=== PATIENT | male | born 2000 | race Asian ===

== ENCOUNTER 2021-02-10 09:49 | Outpatient (CLI) | payer OTHER | END 2021-02-10 09:50 | disposition home or self-care (01) | LOC: CSHWCC 09:49 | PROVIDERS: ATTEND Nurse Practitioner Family | DX: T81.89XD Other complications of procedures, not elsewhere classified, subsequent encounter (principal); T86.821 Skin graft (allograft) (autograft) failure; L98.8 Other specified disorders of the skin and subcutaneous tissue; L05.01 Pilonidal cyst with abscess | CPT/HCPCS: 99203; G0463 ==

== ENCOUNTER 2021-02-16 08:23 | Outpatient (CLI) | payer OTHER | END 2021-02-16 08:24 | disposition home or self-care (01) | LOC: CSHWCC 08:23 | PROVIDERS: ATTEND Nurse Practitioner Family | DX: T81.89XD Other complications of procedures, not elsewhere classified, subsequent encounter (principal); T86.821 Skin graft (allograft) (autograft) failure; L05.01 Pilonidal cyst with abscess; L98.8 Other specified disorders of the skin and subcutaneous tissue ==

== ENCOUNTER 2021-03-02 08:24 | Outpatient (CLI) | payer OTHER | END 2021-03-02 08:25 | disposition home or self-care (01) | LOC: CSHWCC 08:24 | PROVIDERS: ATTEND Nurse Practitioner Family | DX: T81.89XD Other complications of procedures, not elsewhere classified, subsequent encounter (principal); L59.8 Other specified disorders of the skin and subcutaneous tissue related to radiation; L05.01 Pilonidal cyst with abscess; T86.821 Skin graft (allograft) (autograft) failure | CPT/HCPCS: 99212; G0463 ==

== ENCOUNTER 2021-03-09 09:21 | Outpatient (CLI) | payer OTHER | END 2021-03-09 09:22 | disposition home or self-care (01) | LOC: CSHWCC 09:21 | PROVIDERS: ATTEND Nurse Practitioner Family | DX: T81.89XD Other complications of procedures, not elsewhere classified, subsequent encounter (principal); L05.01 Pilonidal cyst with abscess; L59.8 Other specified disorders of the skin and subcutaneous tissue related to radiation; T86.821 Skin graft (allograft) (autograft) failure | CPT/HCPCS: 99212; G0463 ==

== ENCOUNTER 2021-03-15 11:03 | Outpatient (CLI) | payer OTHER | END 2021-03-15 11:04 | disposition home or self-care (01) | LOC: CSHWCC 11:03 | PROVIDERS: ATTEND Nurse Practitioner Family | DX: T81.89XD Other complications of procedures, not elsewhere classified, subsequent encounter (principal); L05.01 Pilonidal cyst with abscess; L98.8 Other specified disorders of the skin and subcutaneous tissue; T86.821 Skin graft (allograft) (autograft) failure ==

== ENCOUNTER 2021-04-05 11:44 | Outpatient (CLI) | payer OTHER | END 2021-04-05 11:45 | disposition home or self-care (01) | LOC: CSHWCC 11:44 | PROVIDERS: ATTEND Nurse Practitioner Family | DX: T81.89XD Other complications of procedures, not elsewhere classified, subsequent encounter (principal); L05.01 Pilonidal cyst with abscess; L98.8 Other specified disorders of the skin and subcutaneous tissue; T86.821 Skin graft (allograft) (autograft) failure ==

== ENCOUNTER 2021-04-11 11:51 | Outpatient (CLI) | payer OTHER | END 2021-04-11 11:52 | disposition home or self-care (01) | LOC: CSHWCC 11:51 | PROVIDERS: ATTEND Nurse Practitioner Family | DX: T81.89XA Other complications of procedures, not elsewhere classified, initial encounter (principal); L05.01 Pilonidal cyst with abscess; L98.8 Other specified disorders of the skin and subcutaneous tissue; T86.821 Skin graft (allograft) (autograft) failure ==

== ENCOUNTER 2021-04-17 14:55 | Outpatient (CLI) | payer OTHER | END 2021-04-17 14:56 | disposition home or self-care (01) | LOC: CSHWCC 14:55 | PROVIDERS: ATTEND Nurse Practitioner Family | DX: T81.89XD Other complications of procedures, not elsewhere classified, subsequent encounter (principal); T86.821 Skin graft (allograft) (autograft) failure; L05.01 Pilonidal cyst with abscess; L98.8 Other specified disorders of the skin and subcutaneous tissue | CPT/HCPCS: 17250 ==

== ENCOUNTER 2021-04-20 08:27 | Outpatient (CLI) | payer OTHER | END 2021-04-20 08:28 | disposition home or self-care (01) | LOC: CSHWCC 08:27 | PROVIDERS: ATTEND Nurse Practitioner Family | DX: T81.89XD Other complications of procedures, not elsewhere classified, subsequent encounter (principal); T86.821 Skin graft (allograft) (autograft) failure; L05.01 Pilonidal cyst with abscess; L98.8 Other specified disorders of the skin and subcutaneous tissue ==

== ENCOUNTER 2021-04-25 11:07 | Outpatient (CLI) | payer OTHER | END 2021-04-25 11:08 | disposition home or self-care (01) | LOC: CSHWCC 11:07 | PROVIDERS: ATTEND Nurse Practitioner Family | DX: T81.89XD Other complications of procedures, not elsewhere classified, subsequent encounter (principal) ==

== ENCOUNTER 2021-04-27 08:02 | Outpatient (CLI) | payer OTHER | END 2021-04-27 08:03 | disposition home or self-care (01) | LOC: CSHWCC 08:02 | PROVIDERS: ATTEND Nurse Practitioner Family | DX: T81.89XD Other complications of procedures, not elsewhere classified, subsequent encounter (principal) ==

== ENCOUNTER 2021-05-02 08:02 | Outpatient (CLI) | payer OTHER | END 2021-05-02 08:03 | disposition home or self-care (01) | LOC: CSHWCC 08:02 | PROVIDERS: ATTEND Nurse Practitioner Family | DX: T81.89XD Other complications of procedures, not elsewhere classified, subsequent encounter (principal) | CPT/HCPCS: 17250; 99212; G0463 ==

== ENCOUNTER 2021-05-11 08:08 | Outpatient (CLI) | payer OTHER | END 2021-05-11 08:09 | disposition home or self-care (01) | LOC: CSHWCC 08:08 | PROVIDERS: ATTEND Nurse Practitioner Family | DX: T81.89XD Other complications of procedures, not elsewhere classified, subsequent encounter (principal) | CPT/HCPCS: 99213; G0463 ==

== ENCOUNTER 2021-05-16 08:04 | Outpatient (CLI) | payer OTHER | END 2021-05-16 08:05 | disposition home or self-care (01) | LOC: CSHWCC 08:04 | PROVIDERS: ATTEND Nurse Practitioner Family | DX: T81.89XD Other complications of procedures, not elsewhere classified, subsequent encounter (principal) | CPT/HCPCS: 99213; G0463 ==

== ENCOUNTER 2021-05-18 08:06 | Outpatient (CLI) | payer OTHER | END 2021-05-18 08:07 | disposition home or self-care (01) | LOC: CSHWCC 08:06 | PROVIDERS: ATTEND Nurse Practitioner Family | DX: T81.89XD Other complications of procedures, not elsewhere classified, subsequent encounter (principal) | CPT/HCPCS: 17250 ==

== ENCOUNTER 2021-05-23 08:03 | Outpatient (CLI) | payer OTHER | END 2021-05-23 08:04 | disposition home or self-care (01) | LOC: CSHWCC 08:03 | PROVIDERS: ATTEND Nurse Practitioner Family | DX: T81.89XD Other complications of procedures, not elsewhere classified, subsequent encounter (principal) ==

== ENCOUNTER 2021-05-25 08:49 | Outpatient (CLI) | payer OTHER | END 2021-05-25 08:50 | disposition home or self-care (01) | LOC: CSHWCC 08:49 | PROVIDERS: ATTEND Nurse Practitioner Family | DX: T81.89XD Other complications of procedures, not elsewhere classified, subsequent encounter (principal) | CPT/HCPCS: 17250 ==

== ENCOUNTER 2021-05-30 08:43 | Outpatient (CLI) | payer OTHER | END 2021-05-30 08:44 | disposition home or self-care (01) | LOC: CSHWCC 08:43 | PROVIDERS: ATTEND Nurse Practitioner Family | DX: T81.89XD Other complications of procedures, not elsewhere classified, subsequent encounter (principal) ==

== ENCOUNTER 2021-06-01 07:58 | Outpatient (CLI) | payer OTHER | END 2021-06-01 07:59 | disposition home or self-care (01) | LOC: CSHWCC 07:58 | PROVIDERS: ATTEND Nurse Practitioner Family | DX: T81.89XD Other complications of procedures, not elsewhere classified, subsequent encounter (principal) | CPT/HCPCS: 99212; G0463 ==

== ENCOUNTER 2021-07-04 09:28 | Outpatient (CLI) | payer OTHER | END 2021-07-04 09:29 | disposition home or self-care (01) | LOC: CSHWCC 09:28 | PROVIDERS: ATTEND Nurse Practitioner Family | DX: T81.89XD Other complications of procedures, not elsewhere classified, subsequent encounter (principal) | CPT/HCPCS: 97607 ==

== ENCOUNTER 2021-07-20 08:04 | Outpatient (CLI) | payer OTHER | END 2021-07-20 08:05 | disposition home or self-care (01) | LOC: CSHWCC 08:04 | PROVIDERS: ATTEND Nurse Practitioner Family | DX: T81.89XD Other complications of procedures, not elsewhere classified, subsequent encounter (principal) | CPT/HCPCS: 97607; 99212; G0463 ==

== ENCOUNTER 2021-07-24 10:55 | Outpatient (CLI) | payer OTHER | END 2021-07-24 10:56 | disposition home or self-care (01) | LOC: CSHWCC 10:55 | PROVIDERS: ATTEND Nurse Practitioner Family | DX: T81.89XD Other complications of procedures, not elsewhere classified, subsequent encounter (principal) | CPT/HCPCS: 99212; G0463 ==

== ENCOUNTER 2021-07-27 08:06 | Outpatient (CLI) | payer OTHER | END 2021-07-27 08:07 | disposition home or self-care (01) | LOC: CSHWCC 08:06 | PROVIDERS: ATTEND Nurse Practitioner Family | DX: T81.89XD Other complications of procedures, not elsewhere classified, subsequent encounter (principal) | CPT/HCPCS: 99212; G0463 ==

== ENCOUNTER 2021-08-02 08:05 | Outpatient (CLI) | payer OTHER | END 2021-08-02 08:06 | disposition home or self-care (01) | LOC: CSHWCC 08:05 | PROVIDERS: ATTEND Nurse Practitioner Family | DX: T81.89XD Other complications of procedures, not elsewhere classified, subsequent encounter (principal) | CPT/HCPCS: 99213; G0463 ==

== ENCOUNTER 2021-08-09 08:38 | Outpatient (CLI) | payer OTHER | END 2021-08-09 08:39 | disposition home or self-care (01) | LOC: CSHWCC 08:38 | PROVIDERS: ATTEND Nurse Practitioner Family | DX: T81.89XD Other complications of procedures, not elsewhere classified, subsequent encounter (principal) | CPT/HCPCS: 99212; G0463 ==

== ENCOUNTER 2021-08-23 08:01 | Outpatient (CLI) | payer OTHER | END 2021-08-23 08:02 | disposition home or self-care (01) | LOC: CSHWCC 08:01 | PROVIDERS: ATTEND Nurse Practitioner Family | DX: T81.89XD Other complications of procedures, not elsewhere classified, subsequent encounter (principal) | CPT/HCPCS: 99213; G0463 ==

== ENCOUNTER 2021-09-06 08:03 | Outpatient (CLI) | payer OTHER | END 2021-09-06 08:04 | disposition home or self-care (01) | LOC: CSHWCC 08:03 | PROVIDERS: ATTEND Nurse Practitioner Family | DX: T81.89XD Other complications of procedures, not elsewhere classified, subsequent encounter (principal) | CPT/HCPCS: 99212; G0463 ==

== ENCOUNTER 2021-09-11 08:05 | Outpatient (CLI) | payer OTHER | END 2021-09-11 08:06 | disposition home or self-care (01) | LOC: CSHWCC 08:05 | PROVIDERS: ATTEND Nurse Practitioner Family | DX: T81.89XD Other complications of procedures, not elsewhere classified, subsequent encounter (principal) | CPT/HCPCS: 99212; G0463 ==

== ENCOUNTER 2021-09-18 10:49 | Outpatient (CLI) | payer OTHER | END 2021-09-18 10:50 | disposition home or self-care (01) | LOC: CSHWCC 10:49 | PROVIDERS: ATTEND Nurse Practitioner Family | DX: T81.89XD Other complications of procedures, not elsewhere classified, subsequent encounter (principal) | CPT/HCPCS: 97607 ==

== ENCOUNTER 2021-09-22 08:42 | Outpatient (CLI) | payer OTHER | END 2021-09-22 08:43 | disposition home or self-care (01) | LOC: CSHWCC 08:42 | PROVIDERS: ATTEND Nurse Practitioner Family | DX: T81.89XD Other complications of procedures, not elsewhere classified, subsequent encounter (principal) | CPT/HCPCS: 99213; G0463 ==

== ENCOUNTER 2021-09-25 08:10 | Outpatient (CLI) | payer OTHER | END 2021-09-25 08:11 | disposition home or self-care (01) | LOC: CSHWCC 08:10 | PROVIDERS: ATTEND Nurse Practitioner Family | DX: T81.89XD Other complications of procedures, not elsewhere classified, subsequent encounter (principal) ==

== ENCOUNTER 2021-09-29 08:33 | Outpatient (CLI) | payer OTHER | END 2021-09-29 08:34 | disposition home or self-care (01) | LOC: CSHWCC 08:33 | PROVIDERS: ATTEND Nurse Practitioner Family | DX: T81.89XD Other complications of procedures, not elsewhere classified, subsequent encounter (principal) | CPT/HCPCS: 99212; G0463 ==

== ENCOUNTER 2021-10-05 08:00 | Outpatient (CLI) | payer OTHER | END 2021-10-05 08:01 | disposition home or self-care (01) | LOC: CSHWCC 08:00 | PROVIDERS: ATTEND Nurse Practitioner Family | DX: T81.89XD Other complications of procedures, not elsewhere classified, subsequent encounter (principal) ==

== ENCOUNTER 2021-10-09 15:05 | Outpatient (CLI) | payer OTHER | END 2021-10-09 15:06 | disposition home or self-care (01) | LOC: CSHWCC 15:05 | PROVIDERS: ATTEND Nurse Practitioner Family | DX: T81.89XD Other complications of procedures, not elsewhere classified, subsequent encounter (principal) ==

== ENCOUNTER 2021-10-12 08:04 | Outpatient (CLI) | payer OTHER | END 2021-10-12 08:05 | disposition home or self-care (01) | LOC: CSHWCC 08:04 | PROVIDERS: ATTEND Nurse Practitioner Family | DX: T81.89XD Other complications of procedures, not elsewhere classified, subsequent encounter (principal) ==

== ENCOUNTER 2021-10-23 08:04 | Outpatient (CLI) | payer OTHER | END 2021-10-23 08:05 | disposition home or self-care (01) | LOC: CSHWCC 08:04 | PROVIDERS: ATTEND Nurse Practitioner Family | DX: T81.89XD Other complications of procedures, not elsewhere classified, subsequent encounter (principal) ==

== ENCOUNTER 2021-10-30 08:04 | Outpatient (CLI) | payer OTHER | END 2021-10-30 08:05 | disposition home or self-care (01) | LOC: CSHWCC 08:04 | PROVIDERS: ATTEND Nurse Practitioner Family | DX: T81.89XD Other complications of procedures, not elsewhere classified, subsequent encounter (principal) | CPT/HCPCS: 99212; G0463 ==

== ENCOUNTER 2021-11-01 08:05 | Outpatient (CLI) | payer OTHER | END 2021-11-01 08:06 | disposition home or self-care (01) | LOC: CSHWCC 08:05 | PROVIDERS: ATTEND Nurse Practitioner Family | DX: T81.89XD Other complications of procedures, not elsewhere classified, subsequent encounter (principal) | CPT/HCPCS: 99213; G0463 ==

== ENCOUNTER 2021-11-06 08:03 | Outpatient (CLI) | payer OTHER | END 2021-11-06 08:04 | disposition home or self-care (01) | LOC: CSHWCC 08:03 | PROVIDERS: ATTEND Nurse Practitioner Family | DX: T81.89XD Other complications of procedures, not elsewhere classified, subsequent encounter (principal) | CPT/HCPCS: 99212; G0463 ==

== ENCOUNTER 2021-11-10 08:05 | Outpatient (CLI) | payer OTHER | END 2021-11-10 08:06 | disposition home or self-care (01) | LOC: CSHWCC 08:05 | PROVIDERS: ATTEND Nurse Practitioner Family | DX: T81.89XD Other complications of procedures, not elsewhere classified, subsequent encounter (principal) | CPT/HCPCS: 99213; G0463 ==

== ENCOUNTER 2021-11-14 10:41 | Outpatient (CLI) | payer OTHER | END 2021-11-14 10:42 | disposition home or self-care (01) | LOC: CSHWCC 10:41 | PROVIDERS: ATTEND Nurse Practitioner Family | DX: T81.89XD Other complications of procedures, not elsewhere classified, subsequent encounter (principal) ==

== ENCOUNTER 2021-11-21 15:03 | Outpatient (CLI) | payer OTHER | END 2021-11-21 15:04 | disposition home or self-care (01) | LOC: CSHWCC 15:03 | PROVIDERS: ATTEND Nurse Practitioner Family | DX: T81.89XD Other complications of procedures, not elsewhere classified, subsequent encounter (principal) | CPT/HCPCS: 99213; G0463 ==

== ENCOUNTER 2021-11-28 12:48 | Outpatient (CLI) | payer OTHER | END 2021-11-28 12:49 | disposition home or self-care (01) | LOC: CSHWCC 12:48 | PROVIDERS: ATTEND Preventive Medicine Undersea and Hyperbaric Medicine | DX: T81.89XD Other complications of procedures, not elsewhere classified, subsequent encounter (principal) | CPT/HCPCS: 99213; G0463 ==

== ENCOUNTER 2021-12-13 09:27 | Outpatient (CLI) | payer OTHER | END 2021-12-13 09:28 | disposition home or self-care (01) | LOC: CSHWCC 09:27 | PROVIDERS: ATTEND Nurse Practitioner Family | DX: T81.89XD Other complications of procedures, not elsewhere classified, subsequent encounter (principal) | CPT/HCPCS: 99213; G0463 ==

== ENCOUNTER 2021-12-26 10:30 | Outpatient (CLI) | payer OTHER | END 2021-12-26 10:31 | disposition home or self-care (01) | LOC: CSHWCC 10:30 | PROVIDERS: ATTEND Preventive Medicine Undersea and Hyperbaric Medicine | DX: T81.89XD Other complications of procedures, not elsewhere classified, subsequent encounter (principal) | CPT/HCPCS: 99213; G0463 ==

== ENCOUNTER 2022-01-19 08:07 | Outpatient (CLI) | payer OTHER | END 2022-01-19 08:08 | LOC: CSHWCC 08:07 | PROVIDERS: ATTEND Nurse Practitioner Family | DX: T81.89XD Other complications of procedures, not elsewhere classified, subsequent encounter (principal) ==

== ENCOUNTER 2022-01-26 08:09 | Outpatient (CLI) | payer OTHER | END 2022-01-26 08:10 | disposition home or self-care (01) | LOC: CSHWCC 08:09 | PROVIDERS: ATTEND Nurse Practitioner Family | DX: T81.89XD Other complications of procedures, not elsewhere classified, subsequent encounter (principal) | CPT/HCPCS: 99213; G0463 ==

== ENCOUNTER 2022-02-02 08:19 | Outpatient (CLI) | payer OTHER | END 2022-02-02 08:20 | disposition home or self-care (01) | LOC: CSHWCC 08:19 | PROVIDERS: ATTEND Nurse Practitioner Family | DX: T81.89XD Other complications of procedures, not elsewhere classified, subsequent encounter (principal) ==

== ENCOUNTER 2022-02-06 15:42 | Outpatient (CLI) | payer OTHER | END 2022-02-06 15:43 | disposition home or self-care (01) | LOC: CSHWCC 15:42 | PROVIDERS: ATTEND Nurse Practitioner Family | DX: T81.89XD Other complications of procedures, not elsewhere classified, subsequent encounter (principal) | CPT/HCPCS: 17250 ==

== ENCOUNTER 2022-02-09 08:10 | Outpatient (CLI) | payer OTHER | END 2022-02-09 08:11 | disposition home or self-care (01) | LOC: CSHWCC 08:10 | PROVIDERS: ATTEND Nurse Practitioner Family | DX: T81.89XD Other complications of procedures, not elsewhere classified, subsequent encounter (principal) | CPT/HCPCS: 99213; G0463 ==

== ENCOUNTER 2022-02-15 15:15 | Outpatient (CLI) | payer OTHER | END 2022-02-15 15:16 | disposition home or self-care (01) | LOC: CSHWCC 15:15 | PROVIDERS: ATTEND Nurse Practitioner Family | DX: T81.89XD Other complications of procedures, not elsewhere classified, subsequent encounter (principal) ==

== ENCOUNTER 2022-02-28 15:35 | Outpatient (CLI) | payer OTHER | END 2022-02-28 15:36 | disposition home or self-care (01) | LOC: CSHWCC 15:35 | PROVIDERS: ATTEND Nurse Practitioner Family | DX: T81.89XD Other complications of procedures, not elsewhere classified, subsequent encounter (principal) | CPT/HCPCS: 87070; 87205; 99213; G0463 ==

== ENCOUNTER 2022-03-07 15:18 | Outpatient (CLI) | payer OTHER | END 2022-03-07 15:19 | disposition home or self-care (01) | LOC: CSHWCC 15:18 | PROVIDERS: ATTEND Nurse Practitioner Family | DX: T81.89XD Other complications of procedures, not elsewhere classified, subsequent encounter (principal) ==

== ENCOUNTER 2022-03-14 13:01 | Outpatient (CLI) | payer OTHER | END 2022-03-14 13:02 | disposition home or self-care (01) | LOC: CSHWCC 13:01 | PROVIDERS: ATTEND Nurse Practitioner Family | DX: T81.89XD Other complications of procedures, not elsewhere classified, subsequent encounter (principal) ==

== ENCOUNTER 2022-04-11 12:55 | Outpatient (CLI) | payer OTHER | END 2022-04-11 12:56 | disposition home or self-care (01) | LOC: CSHWCC 12:55 | PROVIDERS: ATTEND Nurse Practitioner Family | DX: T81.89XD Other complications of procedures, not elsewhere classified, subsequent encounter (principal) ==